=== PATIENT | female | born 1950 | race Caucasian/White ===

== ENCOUNTER 2017-01-01 07:15 | Day surgery (SDC) | payer OTHER ==
[2017-01-01] MEDS ORDERED: TETRACAINE 0.5% OPHTH 1 DOSE AFFEYE ONE ×4 (08:00→10:51)
[2017-01-01] MEDS ORDERED: VIGAMOX 0.5% OPHTH 1 DOSE AFFEYE ONE ×5 (08:05→11:04)
[2017-01-01] MEDS ORDERED: NS 500 ML IV 500 ML IV ONE (08:11)
[2017-01-01] MEDS ORDERED: PROLENSA OPHTH 1 DOSE AFFEYE ONE (08:16)
[2017-01-01] MEDS ORDERED: ALPHAGAN-P OPHTH 1 DOSE AFFEYE ONE (08:17)
[2017-01-01] MEDS ORDERED: AK-DILATE 2.5% OPHTH 1 DOSE OP ONE ×3 (08:18→08:20)
[2017-01-01] MEDS ORDERED: CYCLOGYL 1% OPHTH 1 DOSE OP ONE ×3 (08:18→08:20)
[2017-01-01] MEDS ORDERED: MYDRIACIL OPHTH 1 DOSE AFFEYE ONE ×3 (08:18→08:20)
[2017-01-01] MEDS ORDERED: BETADINE OPHTH SOLN 5% EACHEYE ONE (10:39)
[2017-01-01] MEDS ORDERED: ADRENALINE CHL INJ IJ ONE ×2 (10:48→10:51)
[2017-01-01] MEDS ORDERED: XYLOCAINE-MPF 1% IJ ONE ×2 (10:48→10:51)
[2017-01-01] MEDS ORDERED: DUOVISC IO ONE ×2 (10:48→10:51)
[2017-01-01] MEDS ORDERED: BSS OPHTH (PLAIN) 500 ML with VANCOMYCIN HCL 500 MG VIAL 25 MG, ADRENALINE CHL INJ 1 MG IR ONE ×6 (10:49)
[2017-01-01 15:03] VITALS: BP 152/82
[2017-01-01] MEDS ORDERED: DIPRIVAN VIAL ONE (15:23)
== END 2017-01-01 11:30 | disposition home or self-care (01) ==
LOC: SURG1 07:15
PROVIDERS: ATTEND Ophthalmology
PROC: 08RJ3JZ Replacement of Right Lens with Synthetic Substitute, Percutaneous Approach (ICD-10-PCS; principal; 2017-01-01 11:15)
PROC: 08J0XZZ Inspection of Right Eye, External Approach (ICD-10-PCS; principal; 2017-01-01 11:15)
PROC: 08DJ3ZZ Extraction of Right Lens, Percutaneous Approach (ICD-10-PCS; principal; 2017-01-01 11:15)
DX: H25.11 Age-related nuclear cataract, right eye (principal); H25.011 Cortical age-related cataract, right eye; H25.041 Posterior subcapsular polar age-related cataract, right eye; H52.221 Regular astigmatism, right eye
CPT/HCPCS: A9270; A4217; J0170; J3370; J3490

== ENCOUNTER 2017-01-15 09:30 | Day surgery (SDC) | payer OTHER ==
[2017-01-15] MEDS ORDERED: NS 500 ML IV 500 ML IV ONE (09:50)
[2017-01-15] MEDS ORDERED: TETRACAINE 0.5% OPHTH 1 DOSE AFFEYE ONE ×2 (09:50→14:07)
[2017-01-15] MEDS ORDERED: VIGAMOX 0.5% OPHTH 1 DOSE AFFEYE ONE ×5 (09:51→14:38)
[2017-01-15] MEDS ORDERED: PROLENSA OPHTH 1 DOSE AFFEYE ONE (10:02)
[2017-01-15] MEDS ORDERED: ALPHAGAN-P OPHTH 1 DOSE AFFEYE ONE (10:03)
[2017-01-15] MEDS ORDERED: AK-DILATE 2.5% OPHTH 1 DOSE OP ONE ×4 (10:04→10:07)
[2017-01-15] MEDS ORDERED: CYCLOGYL 1% OPHTH 1 DOSE OP ONE ×4 (10:04→10:07)
[2017-01-15] MEDS ORDERED: MYDRIACIL OPHTH 1 DOSE AFFEYE ONE ×4 (10:04→10:07)
[2017-01-15] MEDS ORDERED: BETADINE OPHTH SOLN 5% EACHEYE ONE (14:07)
[2017-01-15] MEDS ORDERED: ADRENALINE CHL INJ IJ ONE ×2 (14:21→14:27)
[2017-01-15] MEDS ORDERED: DUOVISC IO ONE ×2 (14:21→14:27)
[2017-01-15] MEDS ORDERED: XYLOCAINE-MPF 1% IJ ONE ×2 (14:21→14:27)
[2017-01-15] MEDS ORDERED: BSS OPHTH (PLAIN) 500 ML with VANCOMYCIN HCL 500 MG VIAL 25 MG, ADRENALINE CHL INJ 1 MG IR ONE ×6 (14:22)
[2017-01-15 15:26] VITALS: BP 150/76
== END 2017-01-15 15:05 | disposition home or self-care (01) ==
LOC: SURG1 09:30
PROVIDERS: ATTEND Ophthalmology
PROC: 08RK3JZ Replacement of Left Lens with Synthetic Substitute, Percutaneous Approach (ICD-10-PCS; principal; 2017-01-15 19:00)
PROC: 08DK3ZZ Extraction of Left Lens, Percutaneous Approach (ICD-10-PCS; principal; 2017-01-15 19:00)
DX: H25.12 Age-related nuclear cataract, left eye (principal); H25.012 Cortical age-related cataract, left eye; H25.042 Posterior subcapsular polar age-related cataract, left eye
CPT/HCPCS: A9270; A4217; J0170; J3370